=== PATIENT | female | born 2000 | race Caucasian/White ===

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

== ENCOUNTER 2018-04-17 17:17 | Emergency (ER) | payer SELFPAY ==
[~2018-04-17] VITALS: Ht 144.8 cm; Wt 37.6 kg
[~2018-04-17 17:17] MED LIST: AZIT250T6 PO; PRED20TA PO
--- NOTE | 2018-04-17 17:51 | PHYS DOC ---
Past Medical History Past Medical History: Asthma Past Surgical History: No Surgical History Alcohol Use: None Drug Use: None Adult General Chief Complaint Chief Complaint: NAUSEA/VOMITING/DIARRHA HPI HPI Patient is a 18 year old female with history of asthma who presents today complaining of nausea, vomiting, diarrhea and mild generalized abdominal pain for 2 days. Patient denies any hematemesis or melena. Denies any chance she is . Review of Systems Review of Systems Constitutional: Denies fever or chills [] Eyes: Denies change in visual acuity, redness, or eye pain [] HENT: Denies nasal congestion or sore throat [] Respiratory: Denies cough or shortness of breath [] Cardiovascular: No additional information not addressed in HPI [] GI: Reports generalized abdominal pain, nausea vomiting and diarrhea : Denies dysuria or hematuria [] Musculoskeletal: Denies back pain or joint pain [] Integument: Denies rash or skin lesions [] Neurologic: Denies headache, focal weakness or sensory changes [] All other systems were reviewed and found to be within normal limits, except as documented in this note. Current Medications Current Medications Current Medications Medications (Trade) Dose Ordered Sig/Inna Start Time Stop Time Status Last Admin Dose Admin Dicyclomine HCl (Bentyl) 20 mg 1X ONCE 04/17/18 18:00 04/17/18 18:01 UNV Ondansetron HCl (Zofran) 4 mg 1X ONCE 04/17/18 18:00 04/17/18 18:01 DC 04/17/18 17:56 4 MG Pantoprazole Sodium (PROTONIX VIAL for IV PUSH) 40 mg 1X ONCE 04/17/18 18:00 04/17/18 18:01 UNV Sodium Chloride 1,000 ml @ 1,000 mls/hr 1X ONCE 04/17/18 18:00 04/17/18 18:59 DC 04/17/18 17:56 1,000 MLS/HR Allergies Allergies Allergies Coded Allergies Type Severity Reaction Last Updated Verified No Known Drug Allergies 11/15/17 No Physical Exam Physical Exam Constitutional: Well developed, well nourished, no acute distress, non-toxic appearance. [] HENT: Normocephalic, atraumatic, bilateral external ears normal, oropharynx moist, no oral exudates, nose normal. [] Eyes: PERRLA, EOMI, conjunctiva normal, no discharge. [] Neck: Normal range of motion, no tenderness, supple, no stridor. [] Cardiovascular:Heart rate regular rhythm, no murmur [] Lungs & Thorax: Bilateral breath sounds clear to auscultation [] Abdomen: Bowel sounds normal, soft, no tenderness, no masses, no pulsatile masses. [] Pelvic exam, external pelvic appears normal, cervix is closed, no CMT, no adnexal tenderness, trace amount of white discharge in the vaginal vault. Skin: Warm, dry, no erythema, no rash. [] Back: No tenderness, no CVA tenderness. [] Extremities: No tenderness, no cyanosis, no clubbing, ROM intact, no edema. [] Neurologic: Alert and oriented X 3, normal motor function, normal sensory function, no focal deficits noted. [] Psychologic: Affect normal, judgement normal, mood normal. [] Current Patient Data Vital Signs Vital Signs Date Time Temp Pulse Resp B/P (MAP) Pulse Ox O2 Delivery O2 Flow Rate FiO2 04/17/18 20:00 84 110/59 (76) 100 Room Air 04/17/18 17:33 98.3 18 98.3 Lab Values Laboratory Tests Test 04/17/18 17:44 04/17/18 17:45 04/17/18 17:54 Urine Collection Type Void Urine Color Dk yellow Urine Clarity Clear Urine pH 5.5 Urine Specific [place] >=1.030 Urine Protein 100 mg/dL (NEG-TRACE) Urine Glucose (UA) Negative mg/dL (NEG) Urine Ketones (Stick) >=80 mg/dL (NEG) Urine Blood Negative (NEG) Urine Nitrite Negative (NEG) Urine Bilirubin Small (NEG) Urine Urobilinogen Dipstick 0.2 mg/dL (0.2 mg/dL) Urine Leukocyte Esterase Negative (NEG) Urine RBC 0 /HPF (0-2) Urine WBC Occ /HPF (0-4) Urine Squamous Epithelial Cells Many /LPF Urine Bacteria Moderate /HPF (0-FEW) Urine Mucus Marked /LPF Urine Opiates Screen Neg (NEG) Urine Methadone Screen Neg (NEG) Urine Barbiturates Neg (NEG) Urine Phencyclidine Screen Neg (NEG) Urine Amphetamine/Methamphetamine Neg (NEG) Urine Benzodiazepines Screen Neg (NEG) Urine Cocaine Screen Neg (NEG) Urine Cannabinoids Screen Pos (NEG) Urine Ethyl Alcohol Neg (NEG) POC Urine HCG, Qualitative Hcg positive (Negative) Maternal Serum HCG Beta Subunit 85127 mIU/mL (0-5) H White Blood Count 12.7 x10^3/uL (4.0-11.0) H Red Blood Count 4.58 x10^6/uL (3.50-5.40) Hemoglobin 13.7 g/dL (12.0-15.5) Hematocrit 39.8 % (36.0-47.0) Mean Corpuscular Volume 87 fL (79-100) Mean Corpuscular Hemoglobin 30 pg (25-35) Mean Corpuscular Hemoglobin Concent 35 g/dL (31-37) Red Cell Distribution Width 13.2 % (11.5-14.5) Platelet Count 395 x10^3/uL (140-400) Neutrophils (%) (Auto) 77 % (31-73) H Lymphocytes (%) (Auto) 15 % (24-48) L Monocytes (%) (Auto) 8 % (0-9) Eosinophils (%) (Auto) 0 % (0-3) Basophils (%) (Auto) 0 % (0-3) Neutrophils # (Auto) 9.8 x10^3uL (1.8-7.7) H Lymphocytes # (Auto) 1.9 x10^3/uL (1.0-4.8) Monocytes # (Auto) 1.0 x10^3/uL (0.0-1.1) Eosinophils # (Auto) 0.0 x10^3/uL (0.0-0.7) Basophils # (Auto) 0.0 x10^3/uL (0.0-0.2) Sodium Level 137 mmol/L (136-145) Potassium Level 3.5 mmol/L (3.5-5.1) Chloride Level 98 mmol/L (98-107) Carbon Dioxide Level 19 mmol/L (21-32) L Anion Gap 20 (6-14) H Blood Urea Nitrogen 15 mg/dL (7-20) Creatinine 0.8 mg/dL (0.6-1.0) Estimated GFR (Cockcroft-Gault) 91.4 BUN/Creatinine Ratio 19 (6-20) Glucose Level 96 mg/dL (70-99) Calcium Level 9.9 mg/dL (8.5-10.1) Total Bilirubin 0.7 mg/dL (0.2-1.0) Aspartate Amino Transferase (AST) 17 U/L (15-37) Alanine Aminotransferase (ALT) 26 U/L (14-59) Alkaline Phosphatase 49 U/L (46-116) Total Protein 8.7 g/dL (6.4-8.2) H Albumin 5.1 g/dL (3.4-5.0) H Albumin/Globulin Ratio 1.4 (1.0-1.7) Lipase 92 U/L (73-393) Ethyl Alcohol Level < 10 mg/dL (0-10) Laboratory Tests 04/17/18 17:54 Laboratory Tests 04/17/18 17:54 Microbiology 04/17/18 Wet Prep - Final, Complete EKG EKG [] Radiology/Procedures Radiology/Procedures []PROCEDURE: OB <14 WKS W/TV Indication:Nausea vomiting. + preg test TECHNIQUE:. First trimester OB ultrasound.. COMPARISON: None FINDINGS: The uterus measures 7.8 x 6.2 x 3.6 cm (longitudinal, transverse, AP). Cervix measures 5 cm in length and is closed. The left ovary measures 4.4 x 3.0 x 3.0 cm with a 2.7 x 2.2 x 2.7 cm hypoechoic lesion without internal vascularity. The right ovary measures 3.0 x 2.0 x 1.7 cm. Yolk sac is seen measuring 2.3 mm. Single intrauterine gestation sac is seen. [place]-rump length measures 2.8 mm corresponding to gestation age of 5 weeks 6 days. Cardiac activity seen at the rate of 86 bpm. IMPRESSION: 1. Single intrauterine with estimated gestation age of 5 weeks 6 days with cardiac activity at the rate of 86 bpm. Follow-up ultrasound recommended. 2. Likely a small simple appearing cyst in the left ovary. Electronically signed by: Seymour Swanson DO (04/17/2018 9:42 PM) [facility] DICTATED and SIGNED BY: SEYMOUR SWANSON DO DATE: 04/17/182135 Course & Med Decision Making Course & Med Decision Making Pertinent Labs and Imaging studies reviewed. (See chart for details) This is a 18-year-old female patient presenting to the ED today with generalized abdominal pain, nausea and vomiting that began 2 days ago. Also complaining of slight diarrhea. Positive urine hCG, beta-hCG 24,730. CBC with a WBC of 12.7, normal hemoglobin and hematocrit. CMP with nothing really acute findings. Urine analysis is contaminated with many squamous cell epithelium. Wet prep noted for BV. Patient was discharged on Flagyl. OB ultrasound noted for an IUP 5 weeks 6 days with a heart rate of 86. Patient has been given IV fluids and nausea medicine in the ED. She is feeling better. She'll be discharged with Zofran as well as Flagyl for BV. Instructed to follow-up with an PRODUCTION DEPARTMENT SUPERVISOR as soon as she can. Provided return precautions and discharged in stable condition. vitamins recommended Staff Physician Addendum: I was working in the ER during the course of this patient's visit. I was available for consultation as needed, but I was not directly involved in the care of this patient. Dragon Disclaimer Dragon Disclaimer This electronic medical record was generated, in whole or in part, using a voice recognition dictation system. Departure Departure Impression: Primary Impression: Abdominal pain during Additional Impressions: BV (bacterial vaginosis) Hyperemesis gravidarum Disposition: 01 HOME, SELF-CARE Condition: STABLE Referrals: NO PCP (PCP) DHARA FELIZ MD Follow-up in 1-2 weeks Patient Instructions: ABCs of , Diet - Hyperemesis Gravidarum, Hyperemesis Gravidarum Additional Instructions: You were evaluated in the emergency room for abdominal pain, nausea vomiting and diarrhea. You are 5 weeks 6 days . You also have bacterial vaginosis , we put you on antibiotics, ensure you complete them. Take the nausea medicine prescribed as needed. You can take Tylenol as needed for pain. Push fluids. Follow up with the PRODUCTION DEPARTMENT SUPERVISOR provided in the course of this week or next week. Come back to the ED at any point symptoms worsen. Take vitamins daily Scripts [facility] Cmb#95/Ferrous Fumarate/Fa ( TABLET) 1 Each Tablet 1 TAB PO DAILY, #90 TAB 3 Refills Prov: MUTUNGAJORGE [employer] TECHNICIAN 04/17/18 Metronidazole (FLAGYL) 500 Mg Tablet 1 TAB PO BID, #14 TAB Prov: MUTUNGA,JORGE PUBLIC WORKS TECHNICIAN 04/17/18 Ondansetron (ZOFRAN ODT) 4 Mg Tab.rapdis 1 TAB SL Q8HRS, #90 TAB Prov: MUTUNGA,JORGE PUBLIC WORKS TECHNICIAN 04/17/18 Problem Qualifiers Primary Impression: Abdominal pain during Trimester: first trimester Qualified Codes: O26.891 - Other specified related conditions, first trimester; R10.9 - Unspecified abdominal pain Additional Impressions: Weeks of gestation: less than 8 weeks Qualified Codes: Z3A.01 - Less than 8 weeks gestation of JORGE REYNOLDS APRN Apr 17, 2018 17:51 ESMER MEYERS MD Apr 18, 2018 05:02
[2018-04-17 17:54] LABS: BILIRUBIN,URINE SMALL (NEG); CLARITY,URINE CLEAR; NITRITE,URINE NEGATIVE (NEG); PH,URINE 5.5; PROTEIN,URINE 100 mg/dL (NEG-TRACE); UROBILINOGEN,URINE 0.2 mg/dL (0.2 mg/dL)
[2018-04-17] MEDS: IV NORMAL SALINE 1000ML BAG 1,000 ML IV ONE (17:56)
[2018-04-17] MEDS: ONDANSETRON PF 4 MG/2 ML VIAL. IV ONE (17:56)
[2018-04-17 17:57] LABS: COLOR,URINE DK YELLOW
[2018-04-17] MEDS ORDERED: DICYCLOMINE HCL 10 MG CAPSULE PO ONE (18:00)
[2018-04-17] MEDS ORDERED: PANTOPRAZOLE IV PUSH 40 MG VIAL. IVP ONE (18:00)
[2018-04-17 18:01] LABS: AMPHETAMINE/METHAMPHETAMINE NEG (NEG); BARBITURATES NEG (NEG); BENZODIAZEPINES NEG (NEG); CANNABINOIDS POS (NEG); COCAINE NEG (NEG); METHADONE NEG (NEG); OPIATES NEG (NEG); PHENCYCLIDINE NEG (NEG)
[2018-04-17 18:01] LABS: BASO % 0 % (0-3); EOS % 0 % (0-3); HEMATOCRIT 39.8 % (36.0-47.0); HEMOGLOBIN 13.7 g/dL (12.0-15.5); LYMPH # 1.9 x10^3/uL (1.0-4.8); LYMPH % 15 % (24-48); MEAN CORPUSCULAR HEMOGLOBIN 30 pg (25-35); MEAN CORPUSCULAR HGB CONC 35 g/dL (31-37); MEAN CORPUSCULAR VOLUME 87 fL (79-100); MONO % 8 % (0-9); NEUT # 9.8 x10^3uL (1.8-7.7); NEUT % 77 % (31-73); PLATELET COUNT 395 x10^3/uL (140-400); RED BLOOD COUNT 4.58 x10^6/uL (3.50-5.40); RED CELL DISTRIBUTION WIDTH 13.2 % (11.5-14.5); WHITE BLOOD COUNT 12.7 x10^3/uL (4.0-11.0)
[2018-04-17 18:02] LABS: BACTERIA,URINE MODERATE /HPF (0-FEW); RBC,URINE 0 /HPF (0-2); SQUAMOUS EPITHELIAL CELL,UR MANY /LPF; WBC,URINE OCC /HPF (0-4)
[2018-04-17 18:16] LABS: CALCIUM 9.9 mg/dL (8.5-10.1); CREATININE 0.8 mg/dL (0.6-1.0); GFR 91.4; POTASSIUM 3.5 mmol/L (3.5-5.1)
[2018-04-17 18:23] LABS: ALBUMIN 5.1 g/dL (3.4-5.0); ALBUMIN/GLOBULIN RATIO 1.4 (1.0-1.7); TOTAL BILIRUBIN 0.7 mg/dL (0.2-1.0); TOTAL PROTEIN 8.7 g/dL (6.4-8.2)
[2018-04-17 20:00] VITALS: BP 110/59
--- NOTE | 2018-04-17 21:46 | RAD ---
Indication:Nausea vomiting. + preg test TECHNIQUE:. First trimester OB ultrasound.. COMPARISON: None FINDINGS: The uterus measures 7.8 x 6.2 x 3.6 cm (longitudinal, transverse, AP). Cervix measures 5 cm in length and is closed. The left ovary measures 4.4 x 3.0 x 3.0 cm with a 2.7 x 2.2 x 2.7 cm hypoechoic lesion without internal vascularity. The right ovary measures 3.0 x 2.0 x 1.7 cm. Yolk sac is seen measuring 2.3 mm. Single intrauterine gestation sac is seen. [place]-rump length measures 2.8 mm corresponding to gestation age of 5 weeks 6 days. Cardiac activity seen at the rate of 86 bpm. IMPRESSION: 1. Single intrauterine with estimated gestation age of 5 weeks 6 days with cardiac activity at the rate of 86 bpm. Follow-up ultrasound recommended. 2. Likely a small simple appearing cyst in the left ovary. Electronically signed by: Seymour Swanson DO (04/17/2018 9:42 PM) [employer]
[2018-04-17] MEDS ORDERED: PNV1TABL25 PO (22:05)
[2018-04-17] MEDS ORDERED: ONDA4TAB10 SL (22:05)
[2018-04-17] MEDS ORDERED: METR500T PO (22:05)
== END 2018-04-17 22:25 | disposition home or self-care (01) ==
LOC: ER 17:17
DX: O21.0 Mild hyperemesis gravidarum (principal); O23.591 Infection of other part of genital tract in pregnancy, first trimester; O99.511 Diseases of the respiratory system complicating pregnancy, first trimester; J45.909 Unspecified asthma, uncomplicated; Z3A.01 Less than 8 weeks gestation of pregnancy
CPT/HCPCS: 36415; 76801; 76817; 80053; 80307; 81001; 81025; 83690; 84702; 85025; 87086; 96361; 96374; 99285; G0480; J2405; J7030; Q0111; G0479